=== PATIENT | female | born 1960 | race Caucasian/White ===

== ENCOUNTER 2025-01-06 13:44 | Emergency (ER) | payer OTHER, SELFPAY ==
[2025-01-06 13:45] VITALS: BP 185/112; PULSE 128; RESP 18; TEMP 36.1; O2SAT 97; BMI 36.0
--- NOTE | 2025-01-06 14:49 | EX.ED.DYSGE1 ---
HPI History of Present Illness Chief Complaint: Nosebleed Narrative Narrative: Chief complaint and HPI: 64-year-old female with past medical history of HTN presents for evaluation of nosebleed. Patient states she recently was switched off of her lisinopril due to a cough to a new medication. She does not remember the name of the new medication. She states she has been monitoring her blood pressure at home which has been controlled. She states over the past several days she has been having nasal congestion which she attributes to allergies. She states she developed a bloody nose today. It resolved however reoccurred which is why she presents to the emergency department. She denies any fever, chills, shortness of breath. Review of systems: See HPI Medications: As listed on the chart Allergies: As listed on the chart PFSH: Per chart Vital signs: As listed on the chart. Reviewed. Physical exam: Gen: A&O x3, NAD Head: Normocephalic, atraumatic Eyes: No sclera icterus, conjunctiva clear, PERRL ENT: TMs clear BL, moist mucous membranes, posterior oropharynx unremarkable, uvula midline, tolerating secretions, normal phonation, dried blood in bilateral nares without any active bleeding Neck: Trachea midline, full range of motion CV: RRR, no murmurs Resp: Lungs CTA BL, no w/r/c, no stridor Skin: Warm, dry Psych: Cooperative, appropriate mood and affect [facility] Medical History (Updated 01/06/25 @ 14:12 by Leigh Montes) Hypertension Home Medications ?Medication ?Instructions ?Recorded ?Last Taken ?Type lisinopril 20 mg tablet 20 mg PO DAILY 01/06/25 Unknown History lisinopril 20 tab PO 01/06/25 Unknown History mg-hydrochlorothiazide 12.5 mg tablet losartan 50 mg tablet 50 mg PO DAILY 01/06/25 Unknown History losartan 50 mg-hydrochlorothiazide 1 tab PO DAILY 01/06/25 Unknown History 12.5 mg tablet metoprolol succinate 25 mg 12.5 mg PO DAILY 01/06/25 Unknown History tablet,extended release 24 hr Allergy/AdvReac Type Severity Reaction Status Date / Time No Known Allergies Allergy Verified 01/06/25 13:45 Social History Smoking Status: Never smoker EXAM Physical Exam Const Vital Signs: 01/06/25 13:45 01/06/25 15:13 01/06/25 15:45 Temperature 96.9 F L Temperature Source Temporal Pulse Rate 128 H 89 87 Respiratory Rate 18 16 18 Blood Pressure 185/112 H 168/107 H 197/103 H Blood Pressure Mean 136 127 134 Pulse Ox 97 98 97 Oxygen Delivery Method Room Air 01/06/25 16:15 01/06/25 16:42 Temperature Temperature Source Pulse Rate 107 H 90 Respiratory Rate 16 18 Blood Pressure 170/92 H 144/88 H Blood Pressure Mean 118 106 Pulse Ox 97 97 Oxygen Delivery Method MDM MDM MDM Narrative Medical decision making narrative: 64-year-old female with past medical history of HTN presents for evaluation of nosebleed. Patient states she recently was switched off of her lisinopril due to a cough to a new medication. She does not remember the name of the new medication. She states she has been monitoring her blood pressure at home which has been controlled. She states over the past several days she has been having nasal congestion which she attributes to allergies. She states she developed a bloody nose today. It resolved however reoccurred which is why she presents to the emergency department. On presentation, patient's blood pressure was originally 185/112 however this has improved during her stay here in the emergency department. She states it was not this high at home. Patient had multiple blood clots in the bilateral naris. After blowing her nose and removing the blood clots, patient has no active bleeding. I suspect anterior epistaxis. Will place Afrin spray with monitoring. Patient's nosebleed stopped however when ambulating her blood pressure increased to SBP in the 190s. She began having another bloody nose. I believe her hypertension is contributing to her nosebleed likely due to the recent change in medication. She is on metoprolol 12.5 mg daily as well as losartan hydrochlorothiazide. Will give IV hydralazine. Patient has active bleeding that can now be cauterized. Patient had a anterior epistaxis bleed at the left nare. This was cauterized with silver nitrate stick. Epistaxis resolved and blood pressure improved after hydralazine. Patient's nosebleed did not recur. Will increase patient's metoprolol to 25 mg daily. She was educated to continue monitor her blood pressure at home. Will give another half of 12.5 mg prior to leaving for full dose of 25 for the day. She was educated to call her primary care physician tomorrow and let them know that I increased her metoprolol. She confirmed understand the plan. Return precautions explained. Patient stable to discharge home. Impression: 1. Left nare anterior epistaxis stopped with silver nitrate cauterization 2. Hypertension with history of hypertension Discharge Plan Triage Chief Complaint: Nosebleed ED Provider: Dharmesh Montanez Dx/Rx/DC Orders Prescriptions: No Action losartan 50 mg tablet 50 mg PO DAILY lisinopril 20 mg tablet 20 mg PO DAILY metoprolol succinate 25 mg tablet extended release 24 hr 12.5 mg PO DAILY lisinopril-hydrochlorothiazide 20-12.5 mg tablet PO losartan-hydrochlorothiazide 50-12.5 mg tablet 1 tab PO DAILY Primary Care Provider: Riccardo Andrews Referrals: Riccardo Andrews DO [Primary Care Provider, Medical] Print Language: Armenian
[2025-01-06 15:13] VITALS: BP 168/107; PULSE 89; RESP 16; O2SAT 98
[2025-01-06] MEDS: Oxymetazoline 0.05% 1 SPRAY SPRAY.BTL 2 SPRAY NASAL (15:14)
[2025-01-06 15:45] VITALS: BP 197/103; PULSE 87; RESP 18; O2SAT 97
--- NOTE | 2025-01-06 15:45 | ED.RN ---
ambulated pt. began bleeding from left nare. bp remains elevated
[2025-01-06] MEDS: Silver Nitrate (BKC) 2 EACH TOPICAL (16:06)
[2025-01-06 16:15] VITALS: BP 170/92; PULSE 107; RESP 16; O2SAT 97
[2025-01-06 16:42] VITALS: BP 144/88; PULSE 90; RESP 18; O2SAT 97
[2025-01-06] MEDS: Metoprolol(XL)Succ 25 MG Tablet 12.5 MG PO (17:09)
[2025-01-06 17:11] VITALS: BP 121/76; PULSE 115; RESP 18; TEMP 36.7; O2SAT 98
== END 2025-01-06 17:12 | disposition home or self-care (01) ==
PROVIDERS: Emergency Provider Surgery; PCP Student in an Organized Health Care Education/Training Program; Visit Provider Surgery
DX: R04.0 Epistaxis (principal); I10 Essential (primary) hypertension; Z79.899 Other long term (current) drug therapy
CPT/HCPCS: 30901; 96374; 99283; A4216

== ENCOUNTER 2025-01-11 14:04 | Emergency (ER) | payer OTHER, SELFPAY ==
[2025-01-11 14:04] VITALS: BP 178/96; PULSE 81; RESP 16; TEMP 36.6; O2SAT 97; BMI 36.0
[2025-01-11 14:52] VITALS: BP 179/63
--- NOTE | 2025-01-11 15:14 | EX.ED.DYSGE1 ---
HPI History of Present Illness Chief Complaint: Hypertension Informant: patient Narrative Narrative: This is a 64-year-old female who presents to the emergency department for an elevated blood pressure. The patient was here earlier in the week for epistaxis. She had a systolic blood pressure above 200 at that time. Blood pressure medications were adjusted throughout the week. Patient has not had any recurrent epistaxis or bleeding episodes. She checked her blood pressure earlier today and it was elevated again so she decided to come to the ED to be checked out. She has no headache. No vision changes. No dizziness or lightheadedness. No unilateral focal numbness, weakness or paresthesias. No chest pain or shortness of breath. Has no syncopal episodes. Patient states she otherwise feels well. She has been compliant with her medication regimen prescribed by her physicians. [facility] Medical History (Updated 01/11/25 @ 16:[address] Mel Hahn MD) Hypertension Home Medications ?Medication ?Instructions ?Recorded ?Last Taken ?Type losartan 50 mg tablet 50 mg PO DAILY 01/06/25 01/11/25 History losartan 50 mg-hydrochlorothiazide 1 tab PO DAILY 01/06/25 01/11/25 History 12.5 mg tablet amlodipine 5 mg tablet 5 mg PO DAILY 01/11/25 01/11/25 History cholecalciferol (vitamin D3) 50 50 mcg PO DAILY 01/11/25 01/11/25 History mcg (2,000 unit) capsule (D3-2000) metoprolol succinate 25 mg 12.5 mg PO DAILY 01/11/25 01/11/25 History tablet,extended release 24 hr Allergy/AdvReac Type Severity Reaction Status Date / Time No Known Allergies Allergy Verified 01/11/25 14:06 Social History Smoking Status: Never smoker ROS ROS ED Constitutional Constitutional ED: Reports as per HPI; Denies headache(s) Cardiovascular Cardiovascular: Denies chest pain or dyspnea Respiratory/Chest Respiratory/Chest: Denies dyspnea Gastrointestinal Gastrointestinal: Denies nausea or vomiting Musculoskeletal Musculoskeletal: Denies myalgias Neurologic Neurologic: Denies headache(s), paresthesias or weakness Psychiatric Psychiatric: Reports none Hematologic/Lymphatic Hematologic/Lymphatic: Reports none Allergic/Immunologic Allergic/Immunologic ED: Reports none EXAM Physical Exam Const Vital Signs: 01/11/25 14:04 01/11/25 14:04 01/11/25 14:52 Temperature 97.8 F Temperature Source Oral Pulse Rate 81 Respiratory Rate 16 Respiratory Effort Normal Respiratory Pattern Normal Blood Pressure 178/96 H 179/63 H Blood Pressure Mean 123 101 Pulse Ox 97 Oxygen Delivery Method Room Air 01/11/25 16:04 01/11/25 16:45 Temperature Temperature Source Pulse Rate 92 Respiratory Rate 16 Respiratory Effort Respiratory Pattern Blood Pressure 158/88 H 139/92 H Blood Pressure Mean 111 107 Pulse Ox 98 Oxygen Delivery Method Room Air Positive well nourished, well developed, oriented x3 and healthy appearing General Appearance ED: active, cooperative and well developed Orientation / Consciousness: awake and oriented to person Exam Limitations: no limitations Nutritional Appearance: Negative for overweight HEENT Reports normocephalic, head/scalp atraumatic, moist mucous membranes, nasal mucous membranes and turbinates normal and oropharynx normal normocephalic, normal to inspection and atraumatic Face and Sinus: normal facial exam Nose: external nose normal and nares normal External Ear: external ears normal Mouth ED: Yes oral and palatal mucosa normal, Yes lips normal and Yes tongue normal Mouth: oral and palatal mucosa normal, lips normal and tongue normal Throat: posterior oropharynx normal Eyes PERRL, EOMs intact bilaterally and conjunctivae normal General Eye ED: Yes normal appearance of both eyes Visual Acuity: acuity normal Eyelid: eyelids normal Conjunctiva: conjunctiva normal Sclera: sclera normal Cornea: cornea normal Pupil: PERRL and accommodation reflex normal EOM: EOM abnormal Neck full ROM Lymph Lymphatic: no lymphadenopathy noted Chest Wall inspection of chest normal Chest: abnormal inspection of the chest Resp normal respiratory effort and normal air movement Effort and Inspection: able to speak in complete sentences and symmetric chest movement Auscultation: clear to auscultation bilaterally Cardio regular rate and regular rhythm Rate: regular rate Peripheral Pulses: pulses 2+ throughout GI Rectal Exam: deferred Back/Spine normal ROM and normal to inspection Cervical Spine: cervical ROM normal Extremity normal to inspection, full ROM and normal capillary refill Neuro oriented x3, CN's II-XII intact bilaterally, moves all extremities and no focal motor deficits Sensorium / Orientation: awake and alert Motor Exam: strength 5/5 throughout Psych mental status grossly normal Appearance: grossly normal and appropriate Speech: normal speech Skin no rashes or lesions noted MDM MDM MDM Narrative Medical decision making narrative: This is a 64-year-old lady who came in for asymptomatic hypertension. I do not feel patient needs an EKG, labs, or any imaging as she is not having any symptoms secondary to her hypertension. She states she has been compliant with her hypertensive regimen at home. She was just concerned because of the adjustments this week and that episode of epistaxis. Her initial blood pressure was 178/96. Heart rate was normal. No chest pain or shortness of breath. No headache. No numbness, tingling or weakness anywhere. She was given 1 dose of oral clonidine. Repeat blood pressure downtrending at 139/92. She continues to be asymptomatic. At this point, I feel she can be discharged home and follow-up with her previously established physicians. I encouraged her to maintain adherence with her antihypertensive regimen and call her doctors on Monday morning, and 2 days to discuss any adjustments. Otherwise, she can continue with her blood pressure logs at home using her home blood pressure cuff. Return indications discussed. All questions answered. Patient discharged home. Discharge Plan Triage Chief Complaint: Hypertension ED Provider: Mel Hahn Dx/Rx/DC Orders Clinical Impression: Hypertension Instructions: ED Hypertension, Established Prescriptions: No Action losartan 50 mg tablet 50 mg PO DAILY losartan-hydrochlorothiazide 50-12.5 mg tablet 1 tab PO DAILY amlodipine 5 mg tablet 5 mg PO DAILY metoprolol succinate 25 mg tablet extended release 24 hr 12.5 mg PO DAILY cholecalciferol (vitamin D3) [D3-2000] 50 mcg (2,000 unit) capsule 50 mcg PO DAILY Primary Care Provider: Riccardo Andrews Referrals: Riccardo Andrews, [Primary Care Provider, Medical] Print Language: Indonesian Disposition Disposition: Home, Self Care Discharge Date/Time: 01/11/25 16:46
[2025-01-11 16:04] VITALS: BP 158/88; PULSE 92; RESP 16; O2SAT 98
[2025-01-11 16:45] VITALS: BP 139/92
== END 2025-01-11 16:46 | disposition home or self-care (01) ==
PROVIDERS: Emergency Provider Emergency Medicine; PCP Student in an Organized Health Care Education/Training Program; Visit Provider Emergency Medicine
DX: I10 Essential (primary) hypertension (principal); Z79.899 Other long term (current) drug therapy
CPT/HCPCS: 99282